=== PATIENT | female | born 1960 | race Caucasian/White ===

== ENCOUNTER 2016-12-12 09:15 | Day surgery (SDC) | payer MEDICAID, MEDICARE ==
--- NOTE | 2016-12-11 11:34 | PCM.ANEPRE ---
Anesthesia Pre-Op Review Reason for Review: JAKOB+ AWAITING CPAP BMI 51.37 Anesthesia Recommendations: Proceed with Procedure Additional Comments 56 female for left Achilles tendon repair. JAKOB with cpap...........consider JAKOB protocol. Erich Barron MD Dec 11, 2016 11:34
[2016-12-12] VITALS (14 sets, daily range): BP systolic 125–143; BP diastolic 61–75; PULSE 73–82; RESP 13–19; O2SAT 95–99
[~2016-12-12] VITALS: Ht 175.3 cm; Wt 148.8 kg
[~2016-12-12 09:15] MED LIST: ALBU0.63 INHALATION; ALBU8.5H2 INHALATION; CHOL100045 PO; EZET10TA PO; FLUT12AE8 IH; FLUT9.9S NS; Lactated Ringer's 1,000 ML IV SCH; PANT40TA3 PO; SERT50TA PO; Vancomycin Inj 2,250 MG in 0.9% Sodium Chloride 500 ML IV ONE
[2016-12-12] MEDS ORDERED: Lidocaine PF 1% 30 mL Inj ONE (09:16)
[2016-12-12] MEDS ORDERED: fentaNYL-PF 50 mCg/mL 2 mL Inj ONE (09:16)
[2016-12-12] MEDS ORDERED: Propofol 10,000 mCg/mL 20 mL Inj ONE (09:16)
[2016-12-12] MEDS ORDERED: Vancomycin 1,000mg/200 mL NS IV ONE (09:44)
[2016-12-12] MEDS ORDERED: Lidocaine 1%/Epi 1:100,000 30 mL MDV INFILTRATE ONE (11:59)
[2016-12-12] MEDS ORDERED: Bupivacaine 0.5%/EPI 50 mL Inj INFILTRATE ONE (12:00)
--- NOTE | 2016-12-12 12:02 | PCM.HPANE ---
Patient Data Date of Service: Dec 12, 2016 Surgeon Admitting Provider: Attending Provider:Isra Alarcon DPM Primary Care Physician:Gael Vásquez MD Other Provider:Neri Benjamin Anesthesia Reason for Visit Left Achilies Rupture Ht/WT & BMI Height (Feet): 5 Height (Inches): 9 Weight (Kilograms): 148.778 Body Mass Index 48.00 Allergies Coded Allergies: cephalexin (Verified Allergy, Severe, HIVES, 12/10/16) ciprofloxacin (Verified Allergy, Severe, RASH, 12/10/16) Cephalosporins (Verified Allergy, Unknown, unknown, 12/10/16) Quinolones (Verified Allergy, Unknown, unknown, 12/10/16) clindamycin (Verified Allergy, Unknown, unknown, 12/10/16) Iodine and Iodide Containing Produc (Verified Adverse Reaction, Severe, [place] skin, 12/10/16) Goxhkdp-Uus-Jqf Reductase Inhibitor (Verified Adverse Reaction, Severe, WEAKNESS, 12/10/16) hydrocodone (Verified Adverse Reaction, Severe, BAD DREAMS WITH EXTENDED RELEASE, 12/10/16) Uncoded Allergies: CANTALOUPE, BANANAS, KIWI (Allergy, Severe, HIVES, 11/28/15) PEACHES, HONEYDEW (Allergy, Severe, HIVES, 11/28/15) hot dogs,chicken (Allergy, Unknown, unknown, 12/10/16) ADHESIVE TAPES (Adverse Reaction, Severe, STATES IT TAKES HER SKIN OFF, 12/10) Past Anesthesia History Anesthesia History: Denies:: Abnormal Airway, Anesthesia Reactions, Difficult Intubation, Fam Anesthesia Reaction, Fam Malignant Hypertherm, Malignant Hyperthermia Diabetes History Hx Diabetes?: No MRSA MRSA: No Medications Hypertension Medication: No (CURRENTLY OFF ANTIHYPERTENSIVES) Reported Medications Sertraline HCl (Zoloft)50 Mg Apdeut56 Mg PO DAILY 30 Days Ref 0 12/10/16 Ezetimibe (Zetia)10 Mg Brtfah38 Mg PO DAILY 30 Days Ref 0 12/10/16 Albuterol HFA (Proair HFA)8.5 Gm Hfa.aer.ad2 Puffs INHALATION Q4H PRN prn #1 INHALER 12/10/16 Fluticasone Propionate (Flonase Allergy Relief)50 Mcg/Actuation [place].susp9.9 Ml NS DAILY PRN prn 12/10/16 Fluticasone Propionate (Flovent HFA 110 mcg)12 Gm Aer.w.adap1 Puff IH BID #12 GM Ref 0 12/10/16 Cholecalciferol (Vitamin D3) (Vitamin D)1,000 Unit Capsule5,000 Unit PO DAILY # 1 BOTTLE Ref 0 12/10/16 Albuterol Neb Soln 0.63 Mg/3 Ml Vial.neb0.63 Mg INHALATION Q4H PRN For Shortness of Breath Ref 0 07/24/[address] 40 Mg Tablet.dr40 Mg PO BID Ref 0 07/23/15 Discontinued Reported Medications Prednisone (PredniSONE)20 Mg Glqbra01 Mg PO DAILY Ref 0 tapering doses 12/10/16 Lisinopril 5 Mg Tablet5 Mg PO DAILY #30 TABLET Ref 0 09/19/14 Hydrocodone-Acetaminophen 10-325 mg 1 Each Tablet1 Tablet PO Q6H PRN For Pain Ref 0 NS [place] 10/325mg take 1-2 tabs PO Q4-6H PRN Pain Disp # 60 Week Supply no refills. 12/04/15 Hydrocodone-Acetaminophen 10-325 mg 1 Each Tablet1-2 PO Q4H PRN For Pain 7 Days Ref 0 NS [place] 10/325mg take 1-2 tabs PO Q4-6H PRN Pain Disp # 60 Week Supply no refills. 12/04/15 [Vit D] No Conflict Check50,000 Units PO WEEKLY 11/28/15 Fluoxetine 10 Mg Jjdieic69 Mg PO DAILY Ref 0 07/23/15 History History of ENT Problems?: Yes HEENT History: Positive for:: Dysphagia (SEEMS TO GET STUCK) Sinus Problem (S/P SINUS SURGERY RECENT RECURRENT SINUS INFECTIONS) Denies:: Abnormal Airway Difficult Intubation Hearing Problem Teeth Condition: Missing Teeth Other HEENT Pertinent History: S/P TONSILLECTOMY Hx of Heart Problems?: Yes Cardiovascular History: Positive for:: Cardiac Surgery (ABLATION 09/24) Heart Murmur (REPORTED BY PT-NONE HEARD BY PCP 11/2016 ECHO 12/2012 EF 55- 60%) Hypertension (HX DYSLIPIDEMIA) Irregular Heartbeat (hx SVT 09/20/14) Denies:: AICD Atrial Fibrillation Chest Pain Congestive Heart Failure Edema Pacemaker Thrombophlebitis Valvular Heart Disease Hx of Respiratory Problem?: Yes Respiratory History: Positive for:: Asthma Dyspnea (MACK) Use of Inhalers / NEBS Denies:: COPD Cough Hemoptysis Pneumonia Tuberculosis Use of C-PAP Machine (JAKOB+/CPAP "CAUSING" RECURRENT SINUS INFECTIONS SLEEP STUDY 12/2015) Hx Neurologic Problems?: No Neurological History: Denies:: CVA Dementia Dizziness Headaches Multiple Sclerosis Parkinson's Disease Seizures Hx of GI Problems?: Yes Gastrointestinal History: Positive for:: Gastroesphageal Reflux Heartburn Denies:: Cirrhosis Diverticulitis Hepatitis Hiatal Hernia Rectal Bleeding Other GI Pertinent History: S/P LAPROSCOPIC BARIATRIC SURGERY W/ INITIAL WEIGHT LOSS BUT IS GAINING NOW Hx of Problems?: No Female Hx: Denies:: Currently Skin History: Denies:: History Skin Disorders? Pressure Ulcers Hx Musculoskeletal Problems?: Yes Musculoskeletal History: Positive for:: Degenerative Joint Joint Replacement (S/P LT TKA) Musculoskeletal Trauma (HX LEFT ELBOW FX, LIMITED ROM LEFT SHOULDER-S/P SURG X2) Osteoarthritis (KNEES) Hx of Psycho/Social Problems?: Yes Psycho Social History: Positive for:: Anxiety Hx Depression Denies:: Bipolar Disorder Hx Surgeries?: Yes (total - knee Left - tendon ligament leg/ankle/ deviated septum/sinusectomy,) Hx Any Other Health Problems?: Yes Other History: Positive for:: Hospitalization (SURGERIES) Thyroid Disease (growth on thyroid - bx was negative) Denies:: Cancer Endocrine Disease History Blood Transfusions: Denies:: Blood Transfuse Reaction Blood Transfusions Hx Diabetes: No Hx Alcohol Use: Yes (RARELY)Hx Substance Use: No Smoking Status: Never Smoker Have You Smoked inLast 12 mo: No Stop/Bang S-Snoring: Do You Snore Loudly: Yes T-Tired: feel tired, fatigued: No O-Obsered: Observed not breath: Yes P-Blood Pressure: treated: Yes B- Body Mass Index > 35 kg/m2: Yes A- Age over 50: Yes N- Neck Large Circumference: Yes G- Gender Male: No JAKOB Total Score: 6 Risk Assessment Category Category 1A: Patient has history of documented sleep apnea, and HAS NOT received any narcotic, sedative or anesthesia administration during this stay. Category 1B: Patient has history of documented sleep apnea, and HAS received any narcotic , sedative or anesthesia administration during this stay Category 2: Patient has SUSPECTED Obstructive Sleep Apnea, and HAS received any narcotic , sedative or anesthesia administration during this stay. Category 3: Patient has SUSPECTED Obstructive Sleep Apnea and HAS NOT received narcotic, sedative or anesthesia administration during this stay. Category 4: Outpatient in Procedural Areas with known sleep apnea or who screen positive for High Risk via the STOP/BANG questionnaire. Exam Exam Vital Signs Vital Signs (Last) Date Time Temp Pulse Resp B/P Pulse Ox O2 Delivery O2 Flow Rate FiO2 12/12/16 10:06 CPAP/BIPAP 12/12/16 09:59 35.9 82 18 135/62 98 General Appearance: Alert, Oriented X3 HEENT/AIRWAY: MP 2 Lungs: Clear to Auscultation Heart: Exam Unremarkable Plan Impression Patient chart reviewed, patient interviewed and anesthestic plan with risks, benefits, and alternatives discussed, and informed consent obtained. NPO Status: 1030pm Edward Mcmahon MD Dec 12, 2016 08:11
[2016-12-12] MEDS ORDERED: Lactated Ringer's 1,000 ML IV SCH (12:03)
[2016-12-12] MEDS ORDERED: Lactated Ringer's 500 ML IV PRN (12:03)
[2016-12-12] MEDS ORDERED: EPHEDrine Sulfate 50 mg/mL Inj IM PRN (12:05)
[2016-12-12] MEDS ORDERED: Phenylephrine 10,000 mCg/mL Inj IVPUSH PRN (12:05)
[2016-12-12] MEDS ORDERED: fentaNYL-PF 50 mCg/mL 2 mL Inj IVPUSH PRN (12:05)
[2016-12-12] MEDS ORDERED: EPHEDrine Sulfate 50 mg/mL Inj IVPUSH PRN (12:05)
[2016-12-12] MEDS ORDERED: MetoCLOpramide 5 mg/mL 2 mL Inj IVPUSH PRN (12:05)
[2016-12-12] MEDS ORDERED: Ondansetron 2 mg/mL 2 mL Inj IVPUSH PRN (12:05)
[2016-12-12] MEDS ORDERED: Labetalol 5 mg/mL 4 mL Inj IV PRN (12:05)
[2016-12-12] MEDS ORDERED: HYDROmorphone 1 mg/mL Inj IVPUSH PRN (12:05)
[2016-12-12] MEDS ORDERED: hydrALAZINE 20 mg/mL Inj IVPUSH PRN (12:05)
[2016-12-12] MEDS ORDERED: Atropine 0.4 mg/mL Inj IVPUSH PRN (12:05)
--- NOTE | 2016-12-12 13:58 | PCM.ANEP2 ---
Post Anesthesia Evaluation ASA/CMS Post Anesthesia Date of Service: Dec 12, 2016 VS in Patient's Normal Range?: Yes Resp Stable; Airway Patent?: Yes CV Function & Hydration Stable: Yes Mental Status Recovered?: Yes Pain control Satisfactory?: Yes N/V Control Satisfactory?: Yes Edward Mcmahon MD Dec 12, 2016 13:58
--- NOTE | 2016-12-12 13:58 | PCM.ANEP1 ---
Post Anesthesia Phase 1 PACU Phase 1 Assessment Date of Service: Dec 12, 2016 Vital Signs Vital Signs Date Time Temp Pulse Resp B/P Pulse Ox O2 Delivery O2 Flow Rate FiO2 12/12/16 13:50 36.5 80 18 132/67 99 Room Air 12/12/16 13:42 18 97 12/12/16 13:40 75 14 133/64 95 Room Air 12/12/16 13:30 36.5 74 13 125/75 98 Room Air 12/12/16 13:25 73 16 134/65 98 Room Air 12/12/16 13:22 19 97 12/12/16 13:20 76 16 139/72 98 Room Air 12/12/16 13:15 74 14 136/69 99 Room Air 12/12/16 13:10 74 16 142/72 95 Room Air 12/12/16 13:05 77 13 140/72 99 Room Air 12/12/16 10:06 CPAP/BIPAP 12/12/16 09:59 35.9 82 18 135/62 98 Room Air Anesthetic Administered: SAB Level of Alertness: Awake, talking MENJIVAR's with Equal Strength: No (starting to move feet post SAB) Pain: No Oxygen Delivery: Room Air Dermatome Level: L5,S1 (Foot) Edward Mcmahon MD Dec 12, 2016 13:58
--- NOTE | 2016-12-13 05:33 | OP ---
[address] [address] OPERATIVE REPORT PATIENT: SHOAIB QUIGLEY : 1960 MR#: [id number] ADMIT: 12/12/2016 JOB ID: [id number] DATE OF SURGERY: 12/12/2016 SURGEON: Isra Alarcon DPM. PREOPERATIVE DIAGNOSIS(ES): 1. Chronic rupture of left Achilles tendon. 2. Reactive synovial cyst of the left ankle. POSTOPERATIVE DIAGNOSIS(ES): 1. Chronic rupture of left Achilles tendon. 2. Reactive synovial cyst of the left ankle. PLANNED PROCEDURE: 1. Open repair of left Achilles tendon. 2. Excision of synovial cyst of the left ankle. ANESTHESIA: Spinal with local block. HEMOSTASIS: None. ESTIMATED BLOOD LOSS: Less than 10 cc. PROCEDURE AND FINDINGS: The patient was brought to the operating room, placed on the table in a supine position. Prior to placement she was given a spinal blockade. After the patient was placed in supine position, I then did incisional block with 2% lidocaine with epinephrine. The left lower extremity was prepped in a normal sterile surgical manner. The patient was placed in an abducted frogleg position for access to the Achilles. Attention was directed to the medial aspect of the left Achilles, where incision was placed parallel but medial to the tendon body. This incision was carried down to the insertion and then crossed laterally to gain greater access. Incision was carried down to the paratenon using sharp and blunt dissection, carefully cauterizing and/or ligating any bleeders that were encountered. I then incised the incision as far lateral as was exposed to open a window from lateral to medial. The tendon was evaluated and found to have a very identifiable split with associated fibrous connective tissue or scar tissue within the tendon body. This is consistent with findings on MRI. I was able to dissect these free and excise them in toto. This amounted to approximately 20% of the core of the tendon. The deficit and disorder of fibers was noted from approximately 2 cm from the insertion all way to the soleal junction. This was cleared of all dystrophic tissue and irrigated, kept moist during the rest of the procedure. I then was able palpate the synovial cyst, which was closely associated with the spur just cephalic to the insertion of the Achilles tendon. I removed the spur with a small rongeur and smoothed the area with a bone rasp. I then identified the cyst and found it to be of unremarkable appearance other than findings on MRI and the patient's symptomatic findings being very sensitive over the cyst. I removed the cyst and irrigated the wound. Once all tissue planes were reorganized into normal anatomic positions, I then closed the deficit in the Achilles tendon with a running Krackow suture, interlocked, to allow for stabilization. I placed one line if Krackow suture on the medial aspect and one on the lateral aspect to canalize the tendon for healing. I also incorporated the plantaris tendon, which was found to be somewhat atrophic, given the patient's height and weight. This was incorporated to augment the tendon repair. Afterwards, I again irrigated with normal saline, followed this with a running, rolling closure of the peritenon with 3-0 Vicryl and several subcutaneous retention sutures of the same. The skin was closed with running subcutaneous 4-0 Vicryl with deeply buried knots. The skin was further stabilized with Steri-Strips over tincture of benzoin. I placed the patient in dressings consisting of saline-moistened Alfredo silk gauze, 4 x 4's, Kerlix, tubular stockinette, Webril and Stevie bandages. The patient had immediate CFT throughout the procedure, as no tourniquet was applied. I did also perform a durable bupivacaine block in the posterior triangle prior to closure. The patient was transferred from the operating room in stable condition, having tolerated the procedure and anesthetic well. I anticipate this block will last until sometime tomorrow. The patient is provided with prescriptions for [place] and Vistaril. I discussed the surgery with her and perioperative expectations. She will follow with me in my regular clinic next week, and I will call her over the weekend for a phone interview. My thanks to the expertise of our surgical team and Anesthesia in taking care of this very nice lady.
== END 2016-12-12 23:59 | disposition home or self-care (01) ==
LOC: SAS 09:15
PROVIDERS: ATTEND Podiatrist
DX: M66.862 Spontaneous rupture of other tendons, left lower leg (principal); M71.372 Other bursal cyst, left ankle and foot; I10 Essential (primary) hypertension; M48.02 Spinal stenosis, cervical region; G89.29 Other chronic pain; E66.01 Morbid (severe) obesity due to excess calories; G47.33 Obstructive sleep apnea (adult) (pediatric); K21.9 Gastro-esophageal reflux disease without esophagitis; F32.9 Major depressive disorder, single episode, unspecified; F41.9 Anxiety disorder, unspecified; J45.909 Unspecified asthma, uncomplicated; E78.5 Hyperlipidemia, unspecified; Z98.84 Bariatric surgery status; Z68.43 Body mass index [BMI] 50.0-59.9, adult; Z96.651 Presence of right artificial knee joint
CPT/HCPCS: 27654; J1200; J2250; J3010; J3370; J7040; J7120

== ENCOUNTER 2016-12-24 01:02 | Emergency (ER) | payer MEDICAID, MEDICARE ==
[~2016-12-24] VITALS: Ht 175.3 cm; Wt 147.7 kg
[~2016-12-24 01:02] MED LIST changes: -Lactated Ringer's 1,000 ML IV SCH; -Vancomycin Inj 2,250 MG in 0.9% Sodium Chloride 500 ML IV ONE
[2016-12-24 01:06] VITALS: BP 169/91; PULSE 96; RESP 20; O2SAT 97
--- NOTE | 2016-12-24 01:15 | ED.REPORT ---
HPI-Extremity Problem Lower Date of Service Dec 24, 2016 ED Provider: Dr. Lou Fleming MD A 56 year old female with a history of hypertension presents to the ED complaining of left Achilles pain that began a few days ago. Patient recently had a left Achilles rupture repaired on 12/12. Associated symptoms include some mild swelling and redness. She described her pain as a "burning" sensation. Patient reports that she has been taking Augmentin as prescribed. She denies fever, chills, numbness or tingling. Nursing Notes Stated Complaint: INFECTED INCISION Chief Complaint: General Complaint Nursing Notes Reviewed: Yes Allergies: Coded Allergies: cephalexin (Verified Allergy, Severe, HIVES, 12/10/16) ciprofloxacin (Verified Allergy, Severe, RASH, 12/10/16) Cephalosporins (Verified Allergy, Unknown, unknown, 12/10/16) Quinolones (Verified Allergy, Unknown, unknown, 12/10/16) clindamycin (Verified Allergy, Unknown, unknown, 12/10/16) Iodine and Iodide Containing Produc (Verified Adverse Reaction, Severe, [place] skin, 12/10/16) Eccrleu-Iyf-Tfq Reductase Inhibitor (Verified Adverse Reaction, Severe, WEAKNESS, 12/10/16) hydrocodone (Verified Adverse Reaction, Severe, BAD DREAMS WITH EXTENDED RELEASE, 12/10/16) Uncoded Allergies: CANTALOUPE, BANANAS, KIWI (Allergy, Severe, HIVES, 11/28/15) PEACHES, HONEYDEW (Allergy, Severe, HIVES, 11/28/15) hot dogs,chicken (Allergy, Unknown, unknown, 12/10/16) ADHESIVE TAPES (Adverse Reaction, Severe, STATES IT TAKES HER SKIN OFF, 12/10) Scheduled Cholecalciferol (Vitamin D3) (Vitamin D) 1,000 Unit Capsule 5,000 UNIT PO DAILY Ezetimibe (Zetia) 10 Mg Tablet 10 MG PO DAILY Fluticasone Propionate (Flovent HFA 110 mcg) 12 Gm Aer.w.adap 1 PUFF IH BID Pantoprazole DR (Pantoprazole DR) 40 Mg Tablet.dr 40 MG PO BID Sertraline HCl (Zoloft) 50 Mg Tablet 50 MG PO DAILY Scheduled PRN Albuterol HFA (Proair HFA) 8.5 Gm Hfa.aer.ad 2 PUFFS INHALATION Q4H PRN PRN prn Albuterol Neb Soln (Albuterol Neb Soln) 0.63 Mg/3 Ml Vial.neb 0.63 MG INHALATION Q4H PRN PRN For Shortness of Breath Fluticasone Propionate (Flonase Allergy Relief) 50 Mcg/Actuation [place].susp 9.9 ML NS DAILY PRN PRN prn General Time Seen by MD: 01:15 Chief Complaint Foot injury left Hx Obtained From: Patient Arrived By: Walk-in Onset Occurred: 3 days ago Symptom Duration: Since onset Location: : Foot left Quality: Painful Severity: Current: Mild Severity: Maximum: Moderate Associated with: Reports: Swelling Pertinent Negative: Pt denies other symptoms Recent Healthcare: Recent doctor visit, Recent hospitalization Past Medical History Past Medical History Hypertension Heart murmur Asthma GERD Past Surgical History Shoulder surgery x2 Arthoscopic surgery Sinus surgery Right leg surgery Achillies Rupture repair Reports: Tonsillectomy Reports: Knee replacement Family History High cholesterol - many family members Grandprasad in 's from [place] Smoking History Never Smoker Social History Denies tobacco use Alcohol Use: Denies alcohol use Drug Use: Denies drug use Other Social History: Good social support, Local resident Ambulatory Status Independent Review of Systems Pt reports redness around the ankle Constitutional: Denies: Chills, Fever Musculoskeletal: Reports: Joint pain, Joint swelling Neurologic: Denies: Change LOC, Numbness Complete sys rev & neg: except as marked. Respiratory: Denies: Shortness of breath Cardiovascular: Denies: Chest pain GI: Denies: Abdominal pain, Nausea, Vomiting Physical Exam Initial Vital Signs Vital Signs (First) Date Time Temp Pulse Resp B/P Pulse Ox O2 Delivery O2 Flow Rate FiO2 12/24/16 01:06 37.0 96 20 169/91 97 Initial VS: Reviewed Head / Eyes: Atraumatic, Normocephalic, PERRL Neck: Supple, Non-tender, Full range of motion Respiratory: Breath sounds normal, Clear to auscultation, No respiratory distress Cardiovascular: Regular rate & rhythm, Heart sounds normal, Intact distal pulses Upper Extremities: Vascular intact, Neuro intact, No swelling, No tenderness Skin: Warm, Dry, No cyanosis Neurologic: Alert, Oriented, Nonfocal Psychiatric: Mood/affect normal, Behavior normal, Normal thought content Lower Extremity / Pelvis / MS: Atraumatic, Inspection NL, Neurologic intact, Vascular intact Ankle / Foot: Atraumatic, No erythema, Neurologic intact, Vascular intact Left Ankle: Positive: Swelling present... (Diffuse edema around the left ankle ) ANKLE/FOOT: Wound is clean, dry and intact Left posterior ankle non-hemorrhagic blisters with clear fluid No dehiscence 2+ DP pulse General/Constitutional: Awake, Alert Re-Eval/Medical Decision Med Decision/Clinical Course 56-year-old female here after surgery on her left Achilles tendon concern for wound infection. Differential diagnosis includes but is not limited to postoperative infection versus normal wound healing versus allergic reaction versus dependent edema. Patient's physical exam is remarkable only for mild clear fluid filled bulla without any evidence of hemorrhagic bulla. The surrounding area is not erythematous, though there is edema of the ankle. The edema is not more than I would expect postsurgically. Patient's wound actually is extremely well-appearing and shows no sign of infection at this time. I offered to give her Neurontin for the burning sensation she has in her ankle. She declined. She is going to call her tactical air control party manager to try to schedule an appointment sooner postop. She has been given very strict return precautions and is amenable to discharge at this time with follow-up. Re-Evaluation/Progress : Time of Eval: 01:29 Patient Status: Condition improved Re-Evaluation/Progress Note: Patient is rechecked. She is informed of her results and diagnosis. All of the patient's questions about signs of infection are adressed. She understands and agrees with the treatment plan to discharge. Counseled Regarding: Diagnosis, Need for follow-up, When/why to return to ED Discharge & Departure Impression: Primary Impression: Post-op pain Disposition: Home Discharge Condition All VS Reviewed: Yes Condition: Improved Patient Instructions: Acute Wound Care (ED) Additional Instructions: Thank you for trusting us with your care this evening. Your emergency department evaluation today is reassuring that there is no infection at this time and I believe your wound is healing very well. Please try to schedule an appointment with your tactical air control party manager for an earlier recheck. Continue to take Augmentin as prescribed and put Neosporin on the area if needed. Please return to the emergency department for any new or worsening conditions including any signs of infection such as fever, chills, pus, worsening pain, redness or swelling. Referrals: Gael Vásquez MD (PCP) Scribe Attestation Portions of this note were transcribed by Carrie Rojas. I, Dr. Fleming personally performed the history, physical exam and medical decision-making; I reviewed and confirmed the accuracy of the information in the transcribed note. Signed by: Savita Deshpande, 12/24/16 0140. copies to: Gael Vásquez MD,Lou Smart MD Dec 24, 2016 01:15 CARRIE ROJAS Dec 24, 2016 01:23
[2016-12-24 01:42] VITALS: BP 169/91; PULSE 96; RESP 20; O2SAT 97
== END 2016-12-24 01:42 | disposition home or self-care (01) ==
LOC: SED 01:02
DX: G89.18 Other acute postprocedural pain (principal); S86.092A Other specified injury of left Achilles tendon, initial encounter; X58.XXXA Exposure to other specified factors, initial encounter; Y92.9 Unspecified place or not applicable; Y93.9 Activity, unspecified; Y99.9 Unspecified external cause status; I10 Essential (primary) hypertension; K21.9 Gastro-esophageal reflux disease without esophagitis; J45.909 Unspecified asthma, uncomplicated; Z98.890 Other specified postprocedural states; Z88.8 Allergy status to other drugs, medicaments and biological substances; Z91.041 Radiographic dye allergy status; Z88.5 Allergy status to narcotic agent; Z88.1 Allergy status to other antibiotic agents